=== PATIENT | male | born 1995 | race Caucasian/White ===

== ENCOUNTER 2020-03-02 13:36 | Inpatient (IN) | payer MEDICARE, MEDICAID ==
[~2020-03-02] VITALS: Ht 175.3 cm; Wt 62.5 kg
[2020-03-02] MEDS ORDERED: SODIUM CHLORIDE 0.9% 1,000 ML IV ONE ×2 (13:40)
[2020-03-02] MEDS ORDERED: THIAMINE 100mg/ml INJ (200mg/2ml VIAL) IV ONE (13:45)
[2020-03-02 14:19] LABS: Basophils # (auto) 0.1 10 ^3/uL (0-0.2); Eosinophils # (auto) 0.1 10 ^3/uL (0-0.8); Eosinophils % (auto) 1.2 % (0.0-7.0); Hematocrit 40.1 % (41.0-53.0); Hemoglobin 13.1 g/dL (13.5-17.5); Lymphocytes # (auto) 2.1 10 ^3/uL (0.4-5.4); Lymphocytes % (auto) 34.7 % (10.0-50.0); Mean Corpuscular Hemoglobin 28.4 pg (28.0-32.0); Mean Corpuscular Hgb Conc. 32.7 g/dL (32.0-36.0); Mean Corpuscular Volume 86.8 fL (80.0-100.0); Monocytes # (auto) 0.4 10 ^3/uL (0-1.3); Monocytes % (auto) 6.6 % (0.0-12.0); Neutrophils # (auto) 3.5 10 ^3/uL (1.6-8.6); Neutrophils % (auto) 56.5 % (37.0-80.0); Nucleated Red Blood Cells % 0.1 %; Platelet Count (auto) 219 10^3/uL (140-450); Red Blood Cells 4.62 10^6/uL (4.5-5.90); Red Cell Distribution Width 14.7 % (11.8-14.3); White Blood Cell 6.2 10^3/uL (4.4-10.8)
[2020-03-02 14:43] LABS: Albumin 3.4 g/dL (3.4-5.0); Calcium 7.5 mg/dL (8.5-10.1); Potassium 3.7 mmol/L (3.5-5.1)
[2020-03-02 14:45] LABS: Bilirubin, Total 0.5 mg/dL (0.2-1.0); Total Protein 6.2 g/dL (6.4-8.2)
[2020-03-02 16:18] LABS: Urine Bacteria NONE SEEN /hpf (None Seen); Urine Blood Negative /uL (Negative); Urine Specific Gravity 1.025 (1.001-1.035); Urine WBC <1 /hpf (0 - 3)
[2020-03-02] MEDS ORDERED: SODIUM CHLORIDE 0.9% 1,000 ML IVB ONE (17:10)
[2020-03-02] MEDS ORDERED: LORazepam 2MG/ML-1ML VIAL IV ONE (17:15)
[2020-03-02] MEDS ORDERED: MULTIPLE VITAMIN TAB PO ONE (17:15)
[2020-03-02] MEDS ORDERED: ONDANSETRON HCL 4 MG/2 ML VIAL IV PRN (17:15)
[2020-03-02] MEDS ORDERED: THIAMINE HCL 100 MG TAB PO ONE (17:15)
[2020-03-02] MEDS ORDERED: NALOXONE HCL 0.4 MG/ML VIAL IV ONE (17:15)
[2020-03-02] MEDS ORDERED: HYDROcodone-ACET 5/325MG TAB PO PRN (17:15)
[2020-03-02] MEDS ORDERED: NITROGLYCERIN 0.4 MG SL TAB SL PRN ×2 (17:15)
[2020-03-02] MEDS ORDERED: DOCUSATE SOD 100 MG CAP PO PRN (17:15)
[2020-03-02] MEDS ORDERED: FOLIC ACID 1 MG TAB PO ONE (17:15)
[2020-03-02] MEDS ORDERED: ALUM & MAG HYDROX-SIMETH LIQ(MAALOX) 30 ML PO PRN (17:15)
[2020-03-02] MEDS ORDERED: ONDANSETRON HCL 4 MG/2 ML VIAL IV ONE (17:15)
[2020-03-02] MEDS ORDERED: LORazepam 0.5 MG TAB PO PRN (17:15)
[2020-03-02] MEDS ORDERED: MORPHINE SULF INJ 2 MG/ML SYRINGE 1ML IV PRN ×3 (17:15)
[2020-03-02] MEDS ORDERED: LORazepam 2MG/ML-1ML VIAL IV PRN (17:15)
[2020-03-02 17:19] LABS: Amphetamine Screen, Urine POSITIVE (NEGATIVE); Barbiturate Scree,Urine NEGATIVE (NEGATIVE); Benzodiazephine Screen, Urine NEGATIVE (NEGATIVE); Cannabinoid Screen, Urine NEGATIVE (NEGATIVE); Cocaine Screen, Urine NEGATIVE (NEGATIVE); Opiate Scree,Urine NEGATIVE (NEGATIVE); Phencyclidine Screen, Urine NEGATIVE (NEGATIVE)
[2020-03-02] MEDS: SODIUM CHLORIDE 0.9% 1,000 ML IV SCH ×2 (17:45→22:14)
[2020-03-02 19:45] VITALS: BP 126/69
--- NOTE | 2020-03-02 19:45 | NUR ---
Telemetry admit from [facility] admitted to Telemetry unit after SBAR received. Patient oriented to Yomi Hanson, primary RN, unit, room, bed, and unit policies regarding patient care and visiting hours. Patient is lethargic but arousable. Patient now on continuous telemetry monitoring, tele box # [id number] and telemetry reading on arrival to unit is SR 90. Patient weighed by bedscale and encouraged to call if they need something. Sitter is present at bedside. All questions and concerns addressed, patient verbalized understanding.
[2020-03-02] MEDS: chlordiazePOXIDE HCL 25 MG CAP PO SCH (20:31)
[2020-03-02 22:00] VITALS: BP 113/59
[2020-03-02] MEDS ORDERED: CALCIUM GLUC 4.65meq/50ml D5AE 50 ML IV ONE (23:15)
[2020-03-03] MEDS: SODIUM CHLORIDE 0.9% 1,000 ML IV SCH ×2 (03:14→10:13)
[2020-03-03] MEDS: chlordiazePOXIDE HCL 25 MG CAP PO SCH ×2 (03:16→10:14)
[2020-03-03 05:59] LABS: Basophils # (auto) 0 10 ^3/uL (0-0.2); Basophils % (auto) 0.8 % (0.0-2.0); Eosinophils # (auto) 0.2 10 ^3/uL (0-0.8); Eosinophils % (auto) 3.2 % (0.0-7.0); Hematocrit 39.8 % (41.0-53.0); Hemoglobin 13.1 g/dL (13.5-17.5); Lymphocytes # (auto) 2.3 10 ^3/uL (0.4-5.4); Lymphocytes % (auto) 46.2 % (10.0-50.0); Mean Corpuscular Hemoglobin 28.8 pg (28.0-32.0); Mean Corpuscular Hgb Conc. 32.9 g/dL (32.0-36.0); Mean Corpuscular Volume 87.4 fL (80.0-100.0); Monocytes # (auto) 0.4 10 ^3/uL (0-1.3); Monocytes % (auto) 7.8 % (0.0-12.0); Neutrophils # (auto) 2.1 10 ^3/uL (1.6-8.6); Nucleated Red Blood Cells % 0.1 %; Platelet Count (auto) 181 10^3/uL (140-450); Red Blood Cells 4.55 10^6/uL (4.5-5.90); Red Cell Distribution Width 14.3 % (11.8-14.3); White Blood Cell 4.9 10^3/uL (4.4-10.8)
[2020-03-03 06:22] LABS: Potassium 4.1 mmol/L (3.5-5.1)
[2020-03-03 06:31] LABS: INR 1.07 (0.9-1.15); Partial Thromboplastin Time 26.1 sec (23.64-32.05)
[2020-03-03 06:32] LABS: Albumin 3.1 g/dL (3.4-5.0); BUN/Creatinine Ratio 22.4; Bilirubin, Total 0.6 mg/dL (0.2-1.0); Calcium 7.8 mg/dL (8.5-10.1); Magnesium 2.2 mg/dL (1.6-2.6); Phosphorus 2.7 mg/dL (2.5-4.90); Total Protein 5.7 g/dL (6.4-8.2)
[2020-03-03 06:40] VITALS: BP_SYST 113; BP_SYST 115; BP_DIAS 59; BP_DIAS 63
[2020-03-03] MEDS ORDERED: CALCIUM W/VIT D (600MG/400IU) TAB PO SCH (08:00)
--- NOTE | 2020-03-03 08:00 | NUR ---
OPENING SHIFT NOTE: PATIENT RESTING IN BED, A/OX3. PATIENT NOTED TO HAVE SLIGHT TREMORS IN THE HANDS, TALKING EXCESSIVELY TELLING STORIES AND USING HANDS A LOT WHILE SPEAKING. PATIENT SKIN WOMACK/SUNBURNED FROM BEING HOMELESS, PATIENT UNABLE TO TELL TIME. IV RUNNING, SITTER AT BEDSIDE, WILL CONTINUE TO MONITOR.
[2020-03-03] MEDS ORDERED: FAMOTIDINE (10MG/ML) 2ML VL IV SCH (10:00)
[2020-03-03] MEDS ORDERED: MULTIPLE VITAMIN TAB PO SCH (10:00)
[2020-03-03] MEDS ORDERED: THIAMINE HCL 100 MG TAB PO SCH (10:00)
[2020-03-03] MEDS ORDERED: FOLIC ACID 1 MG TAB PO SCH (10:00)
--- NOTE | 2020-03-03 11:43 | NUR ---
CALL TO DEJAN CROW. SHE IS GOING TO GO BEDSIDE AND PROVIDE EDUCATION/RESOURCES.
[2020-03-03] MEDS ORDERED: SODIUM CHLORIDE 0.9% 1,000 ML IV SCH (11:45)
--- NOTE | 2020-03-03 13:20 | NUR ---
PATIENT GIVEN ADDITIONAL MEAL AND BIBLE REQUESTED.
--- NOTE | 2020-03-03 15:23 | NUR ---
DISCHARGE: PATIENT DISCHARGED, ALL EDUCATION MATERIALS GIVEN TO PATIENT. ENCOURAGED CESSATION OF DRUGS AND ALCOHOL. EDUCATED ON PRESCRIPTION FILLING AND FOLLOW UP APPOINTMENT INFORMATION. IV REMOVED, MANUAL PRESSURE APPLIED, CATHETER INTACT. TELE BOX CLEANED AND RETURNED TO CARDIO UNIT. PATIENT LEFT WITH ALL BELONGINGS, IN TAXI TO HOMELESS SNF.
--- NOTE | 2020-03-03 15:40 | NUR ---
Assessment Patient is a 24-year-old male who is alert and oriented. Patient informed me he has been homeless for about 2 years. Patient stated he will be going to [place] after discharge and will be staying with some friends. Discussed with patient how to obtain service through the [facility] and local low cost medical clinics. Provided patient with community resources and offered him with taxi voucher within 30 miles and patient agreed. Patient accepted resources. Patient stated he will make his own arrangements using the resources provided. Provided information to clothes closet and meal prior to discharge. Completed homeless assessment and patient signed homeless waiver. Informed JOVITA Horne. Addendum: 03/03/20 at 1540 by DEJAN CROW Amended: Links added.
[2020-03-03] MEDS ORDERED: chlordiazePOXIDE HCL 25 MG CAP PO SCH (22:00)
[2020-03-04] MEDS ORDERED: chlordiazePOXIDE HCL 25 MG CAP PO SCH (22:00)
[2020-03-06] MEDS ORDERED: chlordiazePOXIDE HCL 25 MG CAP PO SCH (07:00)
== END 2020-03-03 15:50 | disposition home or self-care (01) | DRG 897 ==
LOC: ER 13:36 → EDBD 13:36 → TELE 13:37 → TELE-WESTW 19:45
PROVIDERS: ADMIT Hospitalist; ATTEND Family Medicine
DX: F10.229 Alcohol dependence with intoxication, unspecified (principal); F23 Brief psychotic disorder; F10.239 Alcohol dependence with withdrawal, unspecified; E86.0 Dehydration; E83.51 Hypocalcemia; F31.9 Bipolar disorder, unspecified; F19.10 Other psychoactive substance abuse, uncomplicated; K29.20 Alcoholic gastritis without bleeding; F41.9 Anxiety disorder, unspecified; Y90.6 Blood alcohol level of 120-199 mg/100 ml
CPT/HCPCS: 36415; 70450; 71045; 80053; 80307; 80320; 81001; 83735; 84100; 85025; 85610; 85730; G0378; J0610; J3490

== ENCOUNTER 2020-12-10 20:14 | Emergency (ER) | payer MEDICAID, MEDICARE, OTHER ==
[~2020-12-10] VITALS: Ht 167.6 cm; Wt 68.0 kg
[2020-12-10 22:07] LABS: Urine WBC None Seen /hpf (0 - 3)
[2020-12-10 22:15] LABS: Urine Bacteria NONE SEEN /hpf (None Seen); Urine Blood Negative /uL (Negative); Urine Specific Gravity 1.006 (1.001-1.035)
[2020-12-10 22:23] LABS: Alcohol, Urine < 3.0 mg/dL (0-10); Amphetamine Screen, Urine NEGATIVE (NEGATIVE); Barbiturate Scree,Urine NEGATIVE (NEGATIVE); Benzodiazephine Screen, Urine NEGATIVE (NEGATIVE); Cannabinoid Screen, Urine NEGATIVE (NEGATIVE); Cocaine Screen, Urine NEGATIVE (NEGATIVE); Opiate Scree,Urine NEGATIVE (NEGATIVE); Phencyclidine Screen, Urine NEGATIVE (NEGATIVE)
[2020-12-10 22:26] LABS: Basophils # (auto) 0 10 ^3/uL (0-0.2); Basophils % (auto) 0.5 % (0.0-2.0); Eosinophils # (auto) 0.1 10 ^3/uL (0-0.8); Eosinophils % (auto) 1.5 % (0.0-7.0); Hemoglobin 13.5 g/dL (13.5-17.5); Lymphocytes # (auto) 2.1 10 ^3/uL (0.4-5.4); Mean Corpuscular Hemoglobin 29.3 pg (28.0-32.0); Mean Corpuscular Hgb Conc. 33.6 g/dL (32.0-36.0); Mean Corpuscular Volume 87.2 fL (80.0-100.0); Monocytes # (auto) 0.6 10 ^3/uL (0-1.3); Monocytes % (auto) 7.4 % (0.0-12.0); Neutrophils # (auto) 5.6 10 ^3/uL (1.6-8.6); Neutrophils % (auto) 65.6 % (37.0-80.0); Nucleated Red Blood Cells % 0.1 %; Red Blood Cells 4.59 10^6/uL (4.5-5.90); Red Cell Distribution Width 13.7 % (11.8-14.3); White Blood Cell 8.5 10^3/uL (4.4-10.8)
[2020-12-10 22:43] LABS: Albumin 3.9 g/dL (3.4-5.0); Calcium 8.4 mg/dL (8.5-10.1); Potassium 4.1 mmol/L (3.5-5.1)
[2020-12-10 22:45] LABS: Salicylate < 1.7 mg/dL (2.8-20.0)
[2020-12-10 22:46] LABS: Acetaminophen < 2.0 ug/mL (10-30); BUN/Creatinine Ratio 15.5; Bilirubin, Total 0.3 mg/dL (0.2-1.0); Total Protein 6.7 g/dL (6.4-8.2)
[2020-12-11] MEDS ORDERED: HALOPERIDOL LACTATE 5 MG/ML INJ VIAL ONE (02:51)
[2020-12-11] MEDS ORDERED: LORazepam 2MG/ML-1ML VIAL ONE (02:52)
[2020-12-11] MEDS ORDERED: diphenhdrAMINE HCL 50 MG/1 ML VL ONE (02:52)
[2020-12-11] MEDS ORDERED: HALOPERIDOL LACTATE 5 MG/ML INJ VIAL IM ONE (03:00)
[2020-12-11] MEDS ORDERED: diphenhdrAMINE HCL 50 MG/1 ML VL IM ONE (03:00)
[2020-12-11] MEDS ORDERED: LORazepam 2MG/ML-1ML VIAL IM ONE (03:00)
[2020-12-12 02:05] VITALS: BP 117/76
== END 2020-12-12 02:10 | disposition home or self-care (01) ==
LOC: ER 20:15
DX: R45.6 Violent behavior (principal); Z20.822 Contact with and (suspected) exposure to COVID-19
CPT/HCPCS: 36415; 80053; 80307; 80329; 81001; 85025; 87426; 96372; 99285; J1200; J1630; J2060